=== PATIENT | female | born 1990 | race Caucasian/White ===

== ENCOUNTER → 2019-06-15 | Outpatient (CLI) | payer BC | END | disposition home or self-care (01) | LOC: LAB EV 18:53 → LAB SHORT 18:53 | DX: N39.0 Urinary tract infection, site not specified (principal) | CPT/HCPCS: 87086 ==

== ENCOUNTER → 2020-06-21 | Outpatient (CLI) | payer OTHER ==
[2020-06-25 07:10] LABS: CHLAMYDIA BY NAA Negative (Negative); GONOCOCCUS BY NAA Negative (Negative); TRICH VAG BY NAA Negative (Negative)
[2020-06-25 08:11] LABS: HPV 16 Negative (Negative); HPV 18 Negative (Negative); HPV OTHER HR TYPES Negative (Negative)
== END ==
LOC: LAB UCHC 19:09 → LAB SHORT 19:09
PROVIDERS: Registered Nurse Community Health
DX: Z12.4 Encounter for screening for malignant neoplasm of cervix (principal)
CPT/HCPCS: 87491; 87591; 87624; 87661; G0123

== ENCOUNTER → 2020-12-22 | Outpatient (CLI) | payer OTHER ==
[~2020-12-22] MED LIST: BASAGLAR K100 UNIT/1 SC; BUSP5 PO; CETI5; FAMO10; METF500 PO
== END ==
LOC: LAB 12:23 → LAB SHORT 12:23
DX: Z33.1 Pregnant state, incidental (principal)
CPT/HCPCS: 87081; 87150

== ENCOUNTER → 2021-01-03 | Outpatient (CLI) | payer OTHER | LOC: LAB SHORT 12:08 → LAB 12:08 | DX: Z33.1 Pregnant state, incidental (principal) | CPT/HCPCS: 87081; 87150; 87184 ==

== ENCOUNTER 2021-01-19 22:51 | Inpatient (IN) | payer OTHER ==
[~2021-01-19] VITALS: Ht 177.8 cm; Wt 150.1 kg
[2021-01-19 23:08] LABS: BASOPHILS ABSOLUTE AUTO 0.04 K/mm3 (0.00-0.23); BASOPHILS PERCENT AUTO 0 % (0-2); EOSINOPHILS ABSOLUTE AUTO 0.09 K/mm3 (0.00-0.68); EOSINOPHILS PERCENT AUTO 1 % (0-6); Hematocrit 35.4 % (33.0-51.0); Hemoglobin 11.5 g/dL (11.5-16.0); IMMATURE GRAN ABSOLUTE AUTO 0.12 K/mm3 (0.00-0.10); IMMATURE GRAN PERCENT AUTO 1 % (0-1); LYMPHOCYTES ABSOLUTE AUTO 1.84 K/mm3 (0.84-5.20); LYMPHOCYTES PERCENT AUTO 12 % (21-46); MONOCYTES ABSOLUTE AUTO 0.77 K/mm3 (0.16-1.47); MONOCYTES PERCENT AUTO 5 % (4-13); Mean Corpuscular HGB 27.8 pg (26.0-34.0); Mean Corpuscular HGB Conc 32.5 g/dL (31.5-36.5); Mean Corpuscular Volume 86 fL (80-100); Mean Platelet Volume 11.2 fL (9.1-12.4); NEUTROPHILS ABSOLUTE AUTO 12.15 K/mm3 (1.96-9.15); NEUTROPHILS PERCENT AUTO 81 % (41-73); Platelet Count 197 K/mm3 (150-400); RDW Coefficient Variation 15.2 % (11.7-14.2); RDW Standard Deviation 47.6 fL (35.1-46.3); Red Blood Cell Count 4.14 M/mm3 (3.80-5.20); White Blood Cell Count 15.01 K/mm3 (4.00-11.30)
[2021-01-19] MEDS ORDERED: METF500 PO (23:11)
[2021-01-19] MEDS ORDERED: FAMO10 (23:12)
[2021-01-19] MEDS ORDERED: BUSP5 PO (23:12)
[2021-01-19] MEDS ORDERED: CETI5 (23:13)
[2021-01-19] MEDS ORDERED: BASAGLAR K100 UNIT/1 SC (23:14)
[2021-01-20 10:37] LABS: BASOPHILS ABSOLUTE AUTO 0.03 K/mm3 (0.00-0.23); BASOPHILS PERCENT AUTO 0 % (0-2); EOSINOPHILS ABSOLUTE AUTO 0.05 K/mm3 (0.00-0.68); EOSINOPHILS PERCENT AUTO 0 % (0-6); Hemoglobin 10.9 g/dL (11.5-16.0); IMMATURE GRAN PERCENT AUTO 1 % (0-1); LYMPHOCYTES ABSOLUTE AUTO 1.19 K/mm3 (0.84-5.20); LYMPHOCYTES PERCENT AUTO 8 % (21-46); MONOCYTES ABSOLUTE AUTO 0.49 K/mm3 (0.16-1.47); MONOCYTES PERCENT AUTO 3 % (4-13); Mean Corpuscular HGB 27.7 pg (26.0-34.0); Mean Corpuscular HGB Conc 32.1 g/dL (31.5-36.5); Mean Corpuscular Volume 87 fL (80-100); Mean Platelet Volume 11.2 fL (9.1-12.4); NEUTROPHILS ABSOLUTE AUTO 13.28 K/mm3 (1.96-9.15); NEUTROPHILS PERCENT AUTO 88 % (41-73); Platelet Count 184 K/mm3 (150-400); RDW Coefficient Variation 15.2 % (11.7-14.2); RDW Standard Deviation 48.5 fL (35.1-46.3); Red Blood Cell Count 3.93 M/mm3 (3.80-5.20); White Blood Cell Count 15.14 K/mm3 (4.00-11.30)
--- NOTE | 2021-01-20 15:15 | NUR ---
CONFIRMED WITH BLOOD BANK THAT PT'S TYPE AND SCREEN WAS SENT OUT AND TESTS TO BE RUN TO DETERMINE ANTIBODIES. CONFIRMED THAT IT DOES NOT NEED TO BE REDRAWN HERE AT [facility].
[2021-01-21 05:17] LABS: Hematocrit 34.9 % (33.0-51.0); Hemoglobin 10.9 g/dL (11.5-16.0); Mean Corpuscular HGB 27.5 pg (26.0-34.0); Mean Corpuscular HGB Conc 31.2 g/dL (31.5-36.5); Mean Corpuscular Volume 88 fL (80-100); Mean Platelet Volume 11.5 fL (9.1-12.4); Platelet Count 175 K/mm3 (150-400); RDW Coefficient Variation 15.4 % (11.7-14.2); Red Blood Cell Count 3.97 M/mm3 (3.80-5.20); White Blood Cell Count 10.74 K/mm3 (4.00-11.30)
[2021-01-21 10:10] LABS: Performing Lab BLOODWORKS; Test Name ABID
--- NOTE | 2021-01-21 11:33 | NUR ---
No acute changes t/o shift. ID bands matched w/verification form and nb. Pt denies additional questions/concerns. D/c'd home ambulatory to care of .
[2021-01-24 08:33] LABS: Result SEE REPORT
== END 2021-01-21 11:33 | disposition home or self-care (01) | DRG 807 ==
LOC: OBS 22:51 → BC 22:57
PROVIDERS: ADMIT Registered Nurse Community Health
PROC: 10E0XZZ Delivery of Products of Conception, External Approach (ICD-10-PCS; principal; 2021-01-21)
PROC: 10907ZC Drainage of Amniotic Fluid, Therapeutic from Products of Conception, Via Natural or Artificial Opening (ICD-10-PCS; 2021-01-21)
PROC: 4A1HXCZ Monitoring of Products of Conception, Cardiac Rate, External Approach (ICD-10-PCS; 2021-01-21)
PROC: 6A550ZT Pheresis of Cord Blood Stem Cells, Single (ICD-10-PCS; 2021-01-21)
DX: O24.424 Gestational diabetes mellitus in childbirth, insulin controlled (principal); Z37.0 Single live birth; Z3A.40 40 weeks gestation of pregnancy; O69.81X0 Labor and delivery complicated by cord around neck, without compression, not applicable or unspecified
CPT/HCPCS: 36415; 51702; 82947; 85025; 85027; 86850; 86870; 86880; 86900; 86901; A9270; J1885; J2001; J2210; J2590; J3010; J3370; J7120

== ENCOUNTER 2021-09-28 08:58 | Day surgery (SDC) | payer OTHER ==
[~2021-09-28] VITALS: Ht 177.8 cm; Wt 140.6 kg
[2021-09-28] MEDS ORDERED: HYDSUL200 (09:32)
--- NOTE | 2021-09-28 10:32 | NUR ---
09/28/21 1032 José Miguel Hanson 0.15MG EPI ADDED TO 30ML'S 0.5% BUPIVACIANE TO ACHIEVE SOLUTION OF 1:200,000.
== END 2021-09-28 12:10 | disposition home or self-care (01) ==
LOC: ORSCSDS 08:58
PROVIDERS: Obstetrics & Gynecology
PROC: 0UT74ZZ Resection of Bilateral Fallopian Tubes, Percutaneous Endoscopic Approach (ICD-10-PCS; principal; 2021-09-28 10:15)
DX: Z30.2 Encounter for sterilization (principal); N80.3 Endometriosis of pelvic peritoneum; E66.01 Morbid (severe) obesity due to excess calories; Z68.41 Body mass index [BMI] 40.0-44.9, adult; Z79.899 Other long term (current) drug therapy; K21.9 Gastro-esophageal reflux disease without esophagitis
CPT/HCPCS: 88302; A9270; J0171; J0690; J1100; J1170; J2250; J2405; J2704; J3010; J7120

== ENCOUNTER → 2021-10-23 | Outpatient (CLI) | payer OTHER ==
[~2021-10-23] MED LIST changes: +HYDSUL200
== END | disposition home or self-care (01) ==
LOC: RAD SHORT 09:21
DX: Z09 Encounter for follow-up examination after completed treatment for conditions other than malignant neoplasm (principal); Z76.89 Persons encountering health services in other specified circumstances

== ENCOUNTER 2023-05-09 07:02 | Day surgery (SDC) | payer BC, OTHER ==
[2023-05-08 17:17] LABS: BASOPHILS ABSOLUTE AUTO 0.04 K/mm3 (0.00-0.23); BASOPHILS PERCENT AUTO 1 % (0-2); EOSINOPHILS PERCENT AUTO 2 % (0-6); Hemoglobin 11.8 g/dL (11.5-16.0); IMMATURE GRAN ABSOLUTE AUTO 0.03 K/mm3 (0.00-0.10); IMMATURE GRAN PERCENT AUTO 0 % (0-1); LYMPHOCYTES ABSOLUTE AUTO 2.51 K/mm3 (0.84-5.20); LYMPHOCYTES PERCENT AUTO 29 % (21-46); MONOCYTES ABSOLUTE AUTO 0.51 K/mm3 (0.16-1.47); MONOCYTES PERCENT AUTO 6 % (4-13); Mean Corpuscular HGB 25.8 pg (26.0-34.0); Mean Corpuscular HGB Conc 31.1 g/dL (31.5-36.5); Mean Corpuscular Volume 83 fL (80-100); Mean Platelet Volume 10.7 fL (9.1-12.4); NEUTROPHILS ABSOLUTE AUTO 5.52 K/mm3 (1.96-9.15); NEUTROPHILS PERCENT AUTO 63 % (41-73); Platelet Count 262 K/mm3 (150-400); RDW Coefficient Variation 14.8 % (11.7-14.2); RDW Standard Deviation 44.7 fL (35.1-46.3); Red Blood Cell Count 4.58 M/mm3 (3.80-5.20); White Blood Cell Count 8.81 K/mm3 (4.00-11.30)
[2023-05-09] VITALS (17 sets, daily range): BP systolic 122–151; BP diastolic 60–83
[~2023-05-09] VITALS: Ht 177.8 cm; Wt 141.4 kg
[~2023-05-09 07:02] MED LIST changes: -FAMO10; +FAMO10 PO
--- NOTE | 2023-05-09 08:12 | NUR ---
History, Chart, Medications and Allergies reviewed before start of procedure. Ambulatory in Day Surgery. Pre-Op teaching done. Pt verbalizes understanding. Patient confirms NPO status and agrees with scheduled surgery. Patient reports completing Chlorhexadine shower X2 prior to admission to hospital. Lungs clear T/O to Auscultation. Patient States Post-Procedure ride home has been arranged.
--- NOTE | 2023-05-09 14:21 | NUR ---
Pt. is resting in bed but reponds when I enter the room> Spouse is present and welcomes my visit. Facilitate a like review and establish rapport. Pt. displays evidence of a clear mind and strength as she recovers from her procedure. Prayed with Pt. and spouse. Pt. and spouse both verbalize gratitude for the spiritual care visit.
--- NOTE | 2023-05-09 18:45 | NUR ---
SHIFT SUMMARY POD0 ROBOTIC LAVH, A/OX4, VSS, TOLERATINGPO, PAIN WELL MANAGED, AMBULATING, VOIDING WELL. NO ACUTE EVENTS THIS SHIFT, CALL LIGHT IN REACH.
[2023-05-10 02:55] VITALS: BP 112/60
[2023-05-10 04:25] LABS: BASOPHILS ABSOLUTE AUTO 0.03 K/mm3 (0.00-0.23); BASOPHILS PERCENT AUTO 0 % (0-2); EOSINOPHILS ABSOLUTE AUTO 0.01 K/mm3 (0.00-0.68); EOSINOPHILS PERCENT AUTO 0 % (0-6); Hematocrit 33.3 % (33.0-51.0); Hemoglobin 10.5 g/dL (11.5-16.0); IMMATURE GRAN ABSOLUTE AUTO 0.04 K/mm3 (0.00-0.10); IMMATURE GRAN PERCENT AUTO 0 % (0-1); LYMPHOCYTES PERCENT AUTO 12 % (21-46); MONOCYTES ABSOLUTE AUTO 0.75 K/mm3 (0.16-1.47); MONOCYTES PERCENT AUTO 5 % (4-13); Mean Corpuscular HGB 25.7 pg (26.0-34.0); Mean Corpuscular HGB Conc 31.5 g/dL (31.5-36.5); Mean Corpuscular Volume 82 fL (80-100); Mean Platelet Volume 10.7 fL (9.1-12.4); NEUTROPHILS ABSOLUTE AUTO 11.95 K/mm3 (1.96-9.15); NEUTROPHILS PERCENT AUTO 82 % (41-73); Platelet Count 263 K/mm3 (150-400); RDW Standard Deviation 45.1 fL (35.1-46.3); Red Blood Cell Count 4.08 M/mm3 (3.80-5.20); White Blood Cell Count 14.58 K/mm3 (4.00-11.30)
--- NOTE | 2023-05-10 06:36 | NUR ---
SHIFT SUMMARY POD 1 LAV HYSTER, 3 INCISIONS C/D, WOUND GLUE INTACT. A&OX4, INDEPENDANT IN ROOM. PT AMBULATED 1X IN HALLWAY THIS SHIFT. ABD BINDER IN PLACE, PT REPORTS PERCOCET CAUSING INSOMNIA, AND WANTS TO REQUEST DIFFERENT PAIN CONTROL MEDICATION. NO ACUTE CHANGES THIS SHIFT. PT PLANS FOR DISCHARGE TODAY.
[2023-05-10 07:10] VITALS: BP 113/59
[2023-05-10] MEDS ORDERED: IBUP800 PO (10:52)
[2023-05-10] MEDS ORDERED: FAMO10 PO (10:52)
[2023-05-10] MEDS ORDERED: Percocet 5-3251 EACH PO (10:53)
[2023-05-10] MEDS ORDERED: PROM25 PO (10:54)
[2023-05-10] MEDS ORDERED: SIME80CH PO (10:54)
--- NOTE | 2023-05-10 11:22 | NUR ---
Pt. is sitting up in bed dressed and awaiting for spouse to arrive to pick her up. Re-establish rapport and provide a calming presence by encouraging self-care. Acknowledge the Pts. current sitiuation and share words of hope and inspiration. Pt. verbalized gratitude for the spiritual care visait.
--- NOTE | 2023-05-10 11:26 | NUR ---
DISCHARGE NOTE: PATIENT WAS EDUCATED ON DISCHARGE INSTRUCTIONS. SHE VERBALIZED UNDERSTANDING OF INSTRUCTIONS AND HAD NO FURTHER QUESTIONS AT THIS TIME. IV WAS TAKEN OUT AND WNL. PAIN IS MANAGED WITH PO PAIN MEDS. HER ABD HAS X4 LAP SITES WITH WOUND GLUE THAT ARE C/D/I. SHE IS TOLERATING PO INTAKE AND IS VOIDING. PATIENT IS INDEP. IN THE ROOM. SHE IS DRESSED AND HAS PERSONAL ITEMS IN THE ROOM GATHERED. PATIENT IS AWAITING FOR HER TO COME PICK HER UP TO TAKE HER HOME.
--- NOTE | 2023-05-10 12:01 | NUR ---
PATIENT IS BEING WHEELCHAIRED OUT TO HER HUSBANDS CAR TO BE TAKEN HOME.
== END 2023-05-10 12:10 | disposition home or self-care (01) ==
LOC: ORSCMMR 07:02 → ORD 08:00 → SURS 12:27 → ORSCMMR 05-10 12:10 → SURS 05-10 12:10
PROVIDERS: Obstetrics & Gynecology
PROC: 0UT9FZZ Resection of Uterus, Via Natural or Artificial Opening With Percutaneous Endoscopic Assistance (ICD-10-PCS; principal; 2023-05-09 08:00)
PROC: 0U5F4ZZ Destruction of Cul-de-sac, Percutaneous Endoscopic Approach (ICD-10-PCS; principal; 2023-05-09 08:00)
DX: N92.0 Excessive and frequent menstruation with regular cycle (principal); N80.329 Endometriosis of the posterior cul-de-sac, unspecified depth; D50.0 Iron deficiency anemia secondary to blood loss (chronic); E66.01 Morbid (severe) obesity due to excess calories; Z68.41 Body mass index [BMI] 40.0-44.9, adult; K21.9 Gastro-esophageal reflux disease without esophagitis; Z79.899 Other long term (current) drug therapy
CPT/HCPCS: 36415; 84702; 85025; 86850; 86870; 86880; 86900; 86901; 88307; A9270; J0690; J1100; J1170; J1885; J2250; J2371; J2405; J2704; J2765; J3010; J7120

== ENCOUNTER 2023-06-16 22:58 | Inpatient (IN) | payer BC, OTHER ==
[~2023-06-16] VITALS: Ht 154.9 cm; Wt 142.4 kg
[~2023-06-16 22:58] MED LIST changes: +IBUP800 PO; +PROM25 PO; +Percocet 5-3251 EACH PO; +SIME80CH PO
[2023-06-16 23:45] LABS: BASOPHILS ABSOLUTE AUTO 0.06 K/mm3 (0.00-0.23); BASOPHILS PERCENT AUTO 0 % (0-2); EOSINOPHILS ABSOLUTE AUTO 0.32 K/mm3 (0.00-0.68); EOSINOPHILS PERCENT AUTO 2 % (0-6); Hematocrit 38.3 % (33.0-51.0); Hemoglobin 12.2 g/dL (11.5-16.0); IMMATURE GRAN ABSOLUTE AUTO 0.08 K/mm3 (0.00-0.10); IMMATURE GRAN PERCENT AUTO 1 % (0-1); LYMPHOCYTES ABSOLUTE AUTO 2.13 K/mm3 (0.84-5.20); LYMPHOCYTES PERCENT AUTO 14 % (21-46); MONOCYTES ABSOLUTE AUTO 0.91 K/mm3 (0.16-1.47); MONOCYTES PERCENT AUTO 6 % (4-13); Mean Corpuscular HGB 25.5 pg (26.0-34.0); Mean Corpuscular HGB Conc 31.9 g/dL (31.5-36.5); Mean Corpuscular Volume 80 fL (80-100); Mean Platelet Volume 10.4 fL (9.1-12.4); NEUTROPHILS ABSOLUTE AUTO 11.97 K/mm3 (1.96-9.15); NEUTROPHILS PERCENT AUTO 77 % (41-73); Platelet Count 282 K/mm3 (150-400); RDW Coefficient Variation 14.5 % (11.7-14.2); RDW Standard Deviation 42.2 fL (35.1-46.3); Red Blood Cell Count 4.79 M/mm3 (3.80-5.20); White Blood Cell Count 15.47 K/mm3 (4.00-11.30)
[2023-06-17 00:02] LABS: Albumin, Blood 3.5 g/dL (3.4-5.0); Albumin/Globulin Ratio 0.7 (0.8-1.8); Bilirubin, Total 0.4 mg/dL (0.1-1.0); Bun/Creatinine Ratio 12.3 (12.0-20.0); Calcium, Blood 9.2 mg/dL (8.5-10.1); Creatinine, Blood 0.82 mg/dL (0.40-1.00); Globulin, Blood 5.2 g/dL (2.2-4.0); Potassium, Blood 3.8 mmol/L (3.5-5.5); Total Protein, Blood 8.7 g/dL (6.4-8.2)
[2023-06-17 00:06] LABS: D-Dimer, Quantitative 5.85 mg/L FEU (0.00-0.52)
[2023-06-17 00:21] LABS: Influenza A, PCR NEGATIVE (NEGATIVE); Influenza B, PCR NEGATIVE (NEGATIVE); Resp Syncytial Virus, PCR NEGATIVE (NEGATIVE); SARS-Cov-2 (COVID-19) PCR, MMC NEGATIVE (NEGATIVE)
[2023-06-17 01:27] LABS: International Normalized Ratio 0.97; Prothrombin Time Results 10.2 Sec (9.7-11.5)
[2023-06-17 01:35] LABS: Anti-Xa UFH, PHA Monitoring <0.10 IU/mL
[2023-06-17] MEDS ORDERED: HYDSUL200 (03:03)
[2023-06-17 03:05] VITALS: BP 122/100
--- NOTE | 2023-06-17 05:26 | NUR ---
SHIFT SUMMARY. PT ARRIVED ON UNIT AT ~0300. aox4, pleasant, cooperative with care. INDEPENDENT TRANSFER WITHIN ROOM AND CALLS APPROPRIATELY FOR ASSISTANCE. ADMIT FOR PE, HEPARIN RUNNING SINCE ARRIVAL WITH NO PAUSES THUS FAR. SECOND IV PLACED IN LFA BY SHANAE NOBLE RN, FLUIDS RUNNING THROUGH SECOND IV ORDERED WITHOUT DIFFICULTY. ADMISSION PROCESS COMPLETED INCLUDING ADMISSION ASSESSMENT. SKIN ASSESSMENT UNREMARKABLE. PT HAS BEEN SATTING WELL ON ROOM AIR SINCE ARRIVAL. TELE ON RUNNING NSR WITH NO EVENTS THUS FAR. DIET ADVANCE TOLERATED, PT HAS TOLERATED PO FLUIDS WELL THUS FAR. BED LOCKED IN LOWEST POSITION. TORREY LIGHT LEFT WITHIN REACH.
[2023-06-17 07:38] VITALS: BP 141/70
--- NOTE | 2023-06-17 07:47 | NUR ---
Pt is in significant pain in her chest, guarded and breathing very shallowly due to the pain which is much worse with deep breathing and with lifting her right arm. Dilaudid recently given by noc becky RN, without relief. Call to Dr. Rivers at this time, for toradol as this did help the patient in the ED. Also pt is asking for throat lozenges as she has been having sore throat from "a cold" at home. New orders received.
[2023-06-17 08:17] LABS: BASOPHILS ABSOLUTE AUTO 0.07 K/mm3 (0.00-0.23); BASOPHILS PERCENT AUTO 1 % (0-2); EOSINOPHILS ABSOLUTE AUTO 0.28 K/mm3 (0.00-0.68); EOSINOPHILS PERCENT AUTO 2 % (0-6); Hematocrit 34.9 % (33.0-51.0); Hemoglobin 11.1 g/dL (11.5-16.0); IMMATURE GRAN ABSOLUTE AUTO 0.06 K/mm3 (0.00-0.10); IMMATURE GRAN PERCENT AUTO 1 % (0-1); LYMPHOCYTES ABSOLUTE AUTO 2.31 K/mm3 (0.84-5.20); LYMPHOCYTES PERCENT AUTO 19 % (21-46); MONOCYTES ABSOLUTE AUTO 0.77 K/mm3 (0.16-1.47); MONOCYTES PERCENT AUTO 6 % (4-13); Mean Corpuscular HGB 25.6 pg (26.0-34.0); Mean Corpuscular HGB Conc 31.8 g/dL (31.5-36.5); Mean Corpuscular Volume 80 fL (80-100); Mean Platelet Volume 10.4 fL (9.1-12.4); NEUTROPHILS PERCENT AUTO 72 % (41-73); NRBC ABSOLUTE 0.03 K/mm3 (0.00-0.02); NRBC Auto 0.2 /100 WBC (0.0-0.2); Platelet Count 249 K/mm3 (150-400); RDW Coefficient Variation 14.5 % (11.7-14.2); RDW Standard Deviation 42.4 fL (35.1-46.3); Red Blood Cell Count 4.34 M/mm3 (3.80-5.20); White Blood Cell Count 12.39 K/mm3 (4.00-11.30)
[2023-06-17 08:40] LABS: Albumin, Blood 3.1 g/dL (3.4-5.0); Albumin/Globulin Ratio 0.7 (0.8-1.8); Bilirubin, Total 0.6 mg/dL (0.1-1.0); Bun/Creatinine Ratio 13.9 (12.0-20.0); Calcium, Blood 8.8 mg/dL (8.5-10.1); Creatinine, Blood 0.72 mg/dL (0.40-1.00); Globulin, Blood 4.6 g/dL (2.2-4.0); Potassium, Blood 3.8 mmol/L (3.5-5.5); Total Protein, Blood 7.7 g/dL (6.4-8.2)
[2023-06-17 14:29] VITALS: BP 127/59
--- NOTE | 2023-06-17 16:25 | NUR ---
Pt has had some chest pain, worse with inspiration today, relief with toradol. Ambulatory to the bathroom independently, states after getting toradol she does not have difficulty breathing with the activity. She also c/o headache and sinus pressure this afternoon, states relief to pain level 2/10 at this time after getting some Tylenol. Appetite good. Heparin infusion continuing, twice the dose was adjusted today per pharmacy. Voiding clear yellow urine, much process control engineer in color than this morning. Florentino is at the beside. No other needs at this time they say.
[2023-06-17 19:30] VITALS: BP 117/68
--- NOTE | 2023-06-17 22:40 | NUR ---
assumed care of pt at 1910. pt aox4, pleasant, cooperative with care. independent transfer within room. continues to saturate well on room air. pt was experiencing reported 9/10 pain on her right side at shift change. administered 1 mg dilaudid iv which pt reports has worked well to mitigate pain along with heating pad applied to area. IV zofran given for some nausea experienced after dilaudid administration. stopped heparin infusion as 2100 xarelto was administered. pt reports not having slept for about 24 hours on shift assessment and has been able to sleep comfortably so far since medications were administered and labs were drawn. encouraged to notify staff if pain presents again. bed locked in lowest position. call light left within reach.
[2023-06-18 00:37] VITALS: BP 114/68
--- NOTE | 2023-06-18 01:12 | NUR ---
PT REPORTING WORSENING MIGRAINE. TORADOL INADEQUATE IN MANAGING ASSOCIATED PAIN. PT REPORTS HX OF MIGRAINES THAT TYPICALLY DIMINISH WITH DECREASED LIGHT AND NOISE STIMULATION. PERSISTING NOW DESPITE THESE MEASURES. CALLED HOSPITALIST DR. SANTIAGO TO NOTIFY WHO ORDERED ONE TIME DOSE OF 50 MG SUMATRIPTAN. ORDER ENTERED. WILL ADMINISTER ONCE AVAILABLE FROM [employer] [employer].
[2023-06-18 03:36] LABS: Hematocrit 35.1 % (33.0-51.0); Hemoglobin 10.8 g/dL (11.5-16.0); Mean Corpuscular HGB 25.2 pg (26.0-34.0); Mean Corpuscular HGB Conc 30.8 g/dL (31.5-36.5); Mean Corpuscular Volume 82 fL (80-100); Mean Platelet Volume 10.6 fL (9.1-12.4); Platelet Count 239 K/mm3 (150-400); RDW Coefficient Variation 14.4 % (11.7-14.2); RDW Standard Deviation 42.5 fL (35.1-46.3); Red Blood Cell Count 4.28 M/mm3 (3.80-5.20); White Blood Cell Count 11.53 K/mm3 (4.00-11.30)
[2023-06-18 04:09] LABS: Bun/Creatinine Ratio 14.4 (12.0-20.0); Calcium, Blood 8.4 mg/dL (8.5-10.1); Creatinine, Blood 0.84 mg/dL (0.40-1.00); Potassium, Blood 4.6 mmol/L (3.5-5.5)
[2023-06-18 04:13] VITALS: BP 104/69
--- NOTE | 2023-06-18 05:20 | NUR ---
SHIFT SUMMARY. PT AOX4, PLEASANT, COOPERATIVE WITH CARE. PRIMARY GOAL OF SHIFT HAS BEEN PAIN MANAGEMENT. R SIDE PAIN HAS BEEN ADEQUATELY MANAGED VIA PRN TORADOL, TYLENOL AND DILAUDID. PT HAD MIGRAINE THIS MORNING. ORDER FOR ONE TIME 50 MG PO SUM[address]AN FROM DR. SANTIAGO WHICH HAS MANAGED MIGRAINE WELL. PT IS RESTING COMFORTABLY IN BED AT THIS TIME. MAKES NEEDS KNOWN AND USES CALL LIGHT APPOPRIATELY. CONTINUES TO SAT WELL ON ROOM AIR. INDEPENDENT WITHIN ROOM. BED LOCKED IN LOWEST POSITION. CALL LIGHT LEFT WITHIN REACH.
[2023-06-18 07:35] VITALS: BP 117/56
--- NOTE | 2023-06-18 09:30 | NUR ---
AM NOTE: PATIENT ALERT AND ORIENTED. DENIES NUMBNESS/TINGLING. COMPLAINS OF MIGRAINE EARLY THIS AM THAT WAS RELIEVED WITH PO MEDS GIVEN BY NOC SHIFT. DENIES HEADACHE AT THIS TIME. PERRLA, WEARING GLASSES. MOVING IND IN BED. ON ROOM AIR SATING ABOVE 90%. EVEN AND UNLABORED RESPIRATIONS. OCCASIONAL MOIST COUGH WITH BLOOD TINGED SPUTUM, SAMPLE TO SAVED TO SHOW PROVIDER. PATIENT STATES RIGHT SIDED/RIB PAIN IS IMPROVING WHEN TAKING DEEP BREATH. TELE SHOWING SR WITH HR 70-80'S. BP STABLE. DENIES CHEST PAIN/PRESSURE/PALPITATIONS. PPP. NO SIGNS OF EDEMA. BOWEL TONES PRESENT. DENIES ABDOMINAL PAIN/NAUSEA. EATING AND VOIDING WNL. SKIN OVERALL C/D/I. CALL LIGHT IN REACH. WATCHING TV AT THIS TIME, DENIES NEEDS.
[2023-06-18] MEDS ORDERED: Acetaminophen325 M1 PO (10:55)
[2023-06-18] MEDS ORDERED: XARELTO15 MG PO (10:57)
[2023-06-18] MEDS ORDERED: XARELTO20 MG PO (10:58)
[2023-06-18 11:52] VITALS: BP 131/67
--- NOTE | 2023-06-18 12:06 | NUR ---
AFTERNOON VITALS STABLE. PATIENT COMPLAINS OF MILD HEADACHE. TYLENOL GIVEN PER EMAR. EATING LUNCH AT THIS TIME. PLAN FOR DISCHARGE. MEDS FAXED TO [facility] IN [place]. PATIENT FAMILY MEMBER PLANS TO BE IN AT 1430 TO PICK PATIENT UP.
--- NOTE | 2023-06-18 14:38 | NUR ---
DISCHARGE: NO ACUTE CHANGES. VITAL SIGNS REMAINS STABLE. PATIENT REMAINS ON ROOM AIR, PAIN FREE. THIS RN REVIEWED DISCHARGE WITH PATIENT, EDUCATED ON NEW MEDICATIONS, FOLLOW UP APPOINTMENTS AND SIGNS/SYMPTOMS OF WHEN TO RETURN. FAMILY MEMBER IN TO PICK PATIENT UP. PATIENT LEFT UNIT WITH ALL PERSONAL BELONGINGS INCLUDING DISCHARGE PACKET. IV'S REMOVED WNL. MEDS FAXED TO [facility].
== END 2023-06-18 14:41 | disposition home or self-care (01) | DRG 176 ==
LOC: ER 22:58 → PCU 22:59
PROVIDERS: Internal Medicine; Student in an Organized Health Care Education/Training Program; ADMIT Internal Medicine
DX: I26.99 Other pulmonary embolism without acute cor pulmonale (principal); I10 Essential (primary) hypertension; K21.9 Gastro-esophageal reflux disease without esophagitis; G43.909 Migraine, unspecified, not intractable, without status migrainosus; D50.9 Iron deficiency anemia, unspecified; F32.A Depression, unspecified; D89.89 Other specified disorders involving the immune mechanism, not elsewhere classified; Z11.52 Encounter for screening for COVID-19; Z88.0 Allergy status to penicillin; Z88.8 Allergy status to other drugs, medicaments and biological substances; Z91.040 Latex allergy status; Z79.899 Other long term (current) drug therapy; Z79.891 Long term (current) use of opiate analgesic; Z90.710 Acquired absence of both cervix and uterus
CPT/HCPCS: 0241U; 36415; 71260; 80048; 80053; 83880; 84484; 85025; 85027; 85379; 85520; 85610; 85730; 93005; 93010; 93306; 93970; 96365; 96366; 96375; 96376; 99285-25; A9270; G0378; J1170; J1644; J1885; J2405; J7030; Q9967

== ENCOUNTER 2023-06-28 03:16 | Emergency (ER) | payer BC, OTHER ==
[~2023-06-28] VITALS: Ht 177.8 cm; Wt 137.9 kg
[~2023-06-28 03:16] MED LIST changes: +Acetaminophen325 M1 PO; +XARELTO15 MG PO; +XARELTO20 MG PO
[2023-06-28 03:58] LABS: BASOPHILS ABSOLUTE AUTO 0.05 K/mm3 (0.00-0.23); BASOPHILS PERCENT AUTO 1 % (0-2); EOSINOPHILS ABSOLUTE AUTO 0.19 K/mm3 (0.00-0.68); EOSINOPHILS PERCENT AUTO 2 % (0-6); Hematocrit 37.8 % (33.0-51.0); Hemoglobin 11.5 g/dL (11.5-16.0); IMMATURE GRAN ABSOLUTE AUTO 0.03 K/mm3 (0.00-0.10); IMMATURE GRAN PERCENT AUTO 0 % (0-1); LYMPHOCYTES PERCENT AUTO 26 % (21-46); MONOCYTES ABSOLUTE AUTO 0.56 K/mm3 (0.16-1.47); MONOCYTES PERCENT AUTO 6 % (4-13); Mean Corpuscular HGB Conc 30.4 g/dL (31.5-36.5); Mean Corpuscular Volume 82 fL (80-100); Mean Platelet Volume 10.1 fL (9.1-12.4); NEUTROPHILS ABSOLUTE AUTO 5.96 K/mm3 (1.96-9.15); NEUTROPHILS PERCENT AUTO 65 % (41-73); Platelet Count 297 K/mm3 (150-400); RDW Coefficient Variation 14.2 % (11.7-14.2); White Blood Cell Count 9.19 K/mm3 (4.00-11.30)
[2023-06-28 04:16] LABS: Albumin, Blood 3.5 g/dL (3.4-5.0); Albumin/Globulin Ratio 0.8 (0.8-1.8); Bilirubin, Total 0.2 mg/dL (0.1-1.0); Bun/Creatinine Ratio 16.8 (12.0-20.0); Calcium, Blood 8.6 mg/dL (8.5-10.1); Creatinine, Blood 0.96 mg/dL (0.40-1.00); Globulin, Blood 4.2 g/dL (2.2-4.0); Potassium, Blood 3.7 mmol/L (3.5-5.5); Total Protein, Blood 7.7 g/dL (6.4-8.2)
[2023-06-28 06:30] VITALS: BP 129/81
== END 2023-06-28 06:32 | disposition home or self-care (01) ==
LOC: ER 03:16
PROVIDERS: Emergency Medicine
DX: R07.89 Other chest pain (principal); Z88.0 Allergy status to penicillin; Z88.5 Allergy status to narcotic agent; Z91.040 Latex allergy status; Z79.01 Long term (current) use of anticoagulants; Z79.899 Other long term (current) drug therapy
CPT/HCPCS: 71260; 80053; 84145; 84484; 85025; 85379; 93005; 93010; 99285-25; Q9967

== ENCOUNTER 2023-08-06 03:43 | Emergency (ER) | payer BC, OTHER ==
[~2023-08-06] VITALS: Ht 177.8 cm; Wt 136.1 kg
[~2023-08-06 03:43] MED LIST changes: +HYDSUL200 PO
[2023-08-06 04:30] LABS: BASOPHILS ABSOLUTE AUTO 0.03 K/mm3 (0.00-0.23); BASOPHILS PERCENT AUTO 0 % (0-2); EOSINOPHILS ABSOLUTE AUTO 0.09 K/mm3 (0.00-0.68); EOSINOPHILS PERCENT AUTO 1 % (0-6); Hematocrit 36.6 % (33.0-51.0); Hemoglobin 11.4 g/dL (11.5-16.0); IMMATURE GRAN ABSOLUTE AUTO 0.03 K/mm3 (0.00-0.10); IMMATURE GRAN PERCENT AUTO 0 % (0-1); LYMPHOCYTES ABSOLUTE AUTO 1.46 K/mm3 (0.84-5.20); LYMPHOCYTES PERCENT AUTO 19 % (21-46); MONOCYTES ABSOLUTE AUTO 0.49 K/mm3 (0.16-1.47); MONOCYTES PERCENT AUTO 6 % (4-13); Mean Corpuscular HGB 25.1 pg (26.0-34.0); Mean Corpuscular HGB Conc 31.1 g/dL (31.5-36.5); Mean Corpuscular Volume 80 fL (80-100); Mean Platelet Volume 10.5 fL (9.1-12.4); NEUTROPHILS ABSOLUTE AUTO 5.51 K/mm3 (1.96-9.15); NEUTROPHILS PERCENT AUTO 72 % (41-73); Platelet Count 250 K/mm3 (150-400); RDW Coefficient Variation 15.2 % (11.7-14.2); RDW Standard Deviation 44.4 fL (35.1-46.3); Red Blood Cell Count 4.55 M/mm3 (3.80-5.20); White Blood Cell Count 7.61 K/mm3 (4.00-11.30)
[2023-08-06 04:52] LABS: Albumin, Blood 3.3 g/dL (3.4-5.0); Albumin/Globulin Ratio 0.8 (0.8-1.8); Bilirubin, Total 0.3 mg/dL (0.1-1.0); Bun/Creatinine Ratio 19.2 (12.0-20.0); Creatinine, Blood 0.68 mg/dL (0.40-1.00); Globulin, Blood 4.3 g/dL (2.2-4.0); Total Protein, Blood 7.6 g/dL (6.4-8.2)
[2023-08-06] MEDS ORDERED: HYDR1TAB94 PO (07:02)
[2023-08-06 07:15] VITALS: BP 104/51
[2023-08-06] MEDS ORDERED: LIDO700A20 TOP (07:20)
== END 2023-08-06 08:07 | disposition home or self-care (01) ==
LOC: ER 03:43
PROVIDERS: Emergency Medicine
DX: R07.81 Pleurodynia (principal); R10.12 Left upper quadrant pain; D68.61 Antiphospholipid syndrome; Z86.711 Personal history of pulmonary embolism; Z87.891 Personal history of nicotine dependence; Z79.01 Long term (current) use of anticoagulants; Z79.899 Other long term (current) drug therapy; Z88.0 Allergy status to penicillin; Z88.5 Allergy status to narcotic agent; Z91.040 Latex allergy status
CPT/HCPCS: 71260; 80053; 83690; 84145; 84484; 85025; 96374; 96375; 99284-25; J1885; J2270; J2405; Q9967

== ENCOUNTER 2024-11-06 09:47 | Emergency (ER) | payer OTHER, BC ==
[~2024-11-06] VITALS: Ht 177.8 cm; Wt 97.5 kg
[~2024-11-06 09:47] MED LIST changes: +HYDR1TAB94 PO; +LIDO700A20 TOP
[2024-11-06 10:26] LABS: BASOPHILS ABSOLUTE AUTO 0.04 K/mm3 (0.00-0.23); BASOPHILS PERCENT AUTO 1 % (0-2); EOSINOPHILS ABSOLUTE AUTO 0.13 K/mm3 (0.00-0.68); EOSINOPHILS PERCENT AUTO 2 % (0-6); Hematocrit 37.1 % (33.0-51.0); Hemoglobin 12.2 g/dL (11.5-16.0); IMMATURE GRAN ABSOLUTE AUTO 0.01 K/mm3 (0.00-0.10); IMMATURE GRAN PERCENT AUTO 0 % (0-1); LYMPHOCYTES ABSOLUTE AUTO 1.69 K/mm3 (0.84-5.20); LYMPHOCYTES PERCENT AUTO 31 % (21-46); MONOCYTES ABSOLUTE AUTO 0.36 K/mm3 (0.16-1.47); MONOCYTES PERCENT AUTO 7 % (4-13); Mean Corpuscular HGB Conc 32.9 g/dL (31.5-36.5); Mean Corpuscular Volume 88 fL (80-100); Mean Platelet Volume 10.9 fL (9.1-12.4); NEUTROPHILS ABSOLUTE AUTO 3.29 K/mm3 (1.96-9.15); NEUTROPHILS PERCENT AUTO 60 % (41-73); Platelet Count 209 K/mm3 (150-400); RDW Coefficient Variation 13.5 % (11.7-14.2); RDW Standard Deviation 43.8 fL (35.1-46.3); Red Blood Cell Count 4.21 M/mm3 (3.80-5.20); White Blood Cell Count 5.52 K/mm3 (4.00-11.30)
[2024-11-06 10:45] LABS: Albumin, Blood 3.9 g/dL (3.4-5.0); Albumin/Globulin Ratio 1.1 (0.8-1.8); Bilirubin, Total 0.7 mg/dL (0.1-1.0); Bun/Creatinine Ratio 12.6 (12.0-20.0); Calcium, Blood 9.3 mg/dL (8.5-10.1); Creatinine, Blood 0.87 mg/dL (0.40-1.00); Globulin, Blood 3.6 g/dL (2.2-4.0); Potassium, Blood 3.3 mmol/L (3.5-5.5); Total Protein, Blood 7.5 g/dL (6.4-8.2)
[2024-11-06] MEDS ORDERED: Rivaroxaban 10 MG Tab PO ONE (13:00)
[2024-11-06] MEDS ORDERED: Acetaminophen 500 MG Tab PO ONE (13:00)
[2024-11-06] MEDS ORDERED: Magnesium Oxide 400 MG Tab PO ONE (13:05)
[2024-11-06] MEDS ORDERED: Potassium Chloride 20 MEQ TabCR PO ONE (13:05)
[2024-11-06 13:30] VITALS: BP 105/62
[2024-11-06] MEDS ORDERED: PANT40 PO (13:41)
[2024-11-06] MEDS ORDERED: ACTIGALL300 MG PO (13:41)
[2024-11-06] MEDS ORDERED: ACET500 PO (13:44)
== END 2024-11-06 13:56 | disposition home or self-care (01) ==
LOC: ER 09:47
PROVIDERS: Student in an Organized Health Care Education/Training Program
DX: R07.89 Other chest pain (principal); R94.31 Abnormal electrocardiogram [ECG] [EKG]; Z88.0 Allergy status to penicillin; Z91.040 Latex allergy status; Z79.899 Other long term (current) drug therapy; Z79.01 Long term (current) use of anticoagulants; Z87.891 Personal history of nicotine dependence
CPT/HCPCS: 71260; 80053; 84484; 85025; 93005; 93010; 99285-25; A9270; Q9967

== ENCOUNTER 2024-11-12 11:53 | Emergency (ER) | payer BC, OTHER ==
[~2024-11-12] VITALS: Ht 177.8 cm; Wt 96.2 kg
[~2024-11-12 11:53] MED LIST changes: +ACET500 PO; +ACTIGALL300 MG PO; +PANT40 PO
[2024-11-12 12:12] VITALS: BP 133/99
[2024-11-12 12:36] LABS: BASOPHILS ABSOLUTE AUTO 0.03 K/mm3 (0.00-0.23); BASOPHILS PERCENT AUTO 0 % (0-2); EOSINOPHILS ABSOLUTE AUTO 0.11 K/mm3 (0.00-0.68); EOSINOPHILS PERCENT AUTO 2 % (0-6); Hematocrit 39.9 % (33.0-51.0); Hemoglobin 12.9 g/dL (11.5-16.0); IMMATURE GRAN ABSOLUTE AUTO 0.02 K/mm3 (0.00-0.10); IMMATURE GRAN PERCENT AUTO 0 % (0-1); LYMPHOCYTES ABSOLUTE AUTO 1.57 K/mm3 (0.84-5.20); LYMPHOCYTES PERCENT AUTO 21 % (21-46); MONOCYTES ABSOLUTE AUTO 0.39 K/mm3 (0.16-1.47); MONOCYTES PERCENT AUTO 5 % (4-13); Mean Corpuscular HGB 28.8 pg (26.0-34.0); Mean Corpuscular HGB Conc 32.3 g/dL (31.5-36.5); Mean Corpuscular Volume 89 fL (80-100); Mean Platelet Volume 10.9 fL (9.1-12.4); NEUTROPHILS ABSOLUTE AUTO 5.32 K/mm3 (1.96-9.15); NEUTROPHILS PERCENT AUTO 72 % (41-73); Platelet Count 221 K/mm3 (150-400); RDW Coefficient Variation 13.2 % (11.7-14.2); RDW Standard Deviation 43.2 fL (35.1-46.3); Red Blood Cell Count 4.48 M/mm3 (3.80-5.20); White Blood Cell Count 7.44 K/mm3 (4.00-11.30)
[2024-11-12 12:47] LABS: Albumin, Blood 3.8 g/dL (3.4-5.0); Bilirubin, Total 0.6 mg/dL (0.1-1.0); Bun/Creatinine Ratio 13.1 (12.0-20.0); Creatinine, Blood 0.77 mg/dL (0.40-1.00); Globulin, Blood 3.8 g/dL (2.2-4.0); Potassium, Blood 3.6 mmol/L (3.5-5.5); Total Protein, Blood 7.6 g/dL (6.4-8.2)
[2024-11-12] MEDS ORDERED: ONDA4ODT MM (14:39)
[2024-11-12] MEDS ORDERED: Percocet 5-3251 EACH PO (14:39)
[2024-11-12] MEDS ORDERED: Ketorolac Tromethamine 15mg Vial IV ONE (14:40)
== END 2024-11-12 14:49 | disposition home or self-care (01) ==
LOC: ER 11:53
PROVIDERS: Physician Assistant
DX: K80.70 Calculus of gallbladder and bile duct without cholecystitis without obstruction (principal); Z87.891 Personal history of nicotine dependence; Z79.899 Other long term (current) drug therapy; Z88.0 Allergy status to penicillin; Z88.5 Allergy status to narcotic agent; Z91.040 Latex allergy status
CPT/HCPCS: 76705; 80053; 83690; 85025; 96374; 99284-25; J1885